=== PATIENT | male | born 1970 | race African-American/Black ===

== ENCOUNTER 2024-02-21 13:25 | Inpatient (IN) | payer OTHER ==
[2024-02-21 15:16] VITALS: BMI 33.7
[2024-02-21] MEDS ORDERED: POLYETHYLENE GLYCOL (HEALTHYLAX) 3350 17 GM PACKET PO PRN (18:20)
[2024-02-21] MEDS ORDERED: BENZONATATE 200 MG CAPSULE PO PRN (18:20)
[2024-02-21] MEDS ORDERED: hydrOXYzine PAMOATE 25 MG CAPSULE (FP) PO PRN (18:20)
[2024-02-21] MEDS ORDERED: IBUPROFEN 600 MG TABLET (FP) PO PRN (18:20)
[2024-02-21] MEDS ORDERED: ONDANSETRON *ODT* 4 MG TABLET SL PRN (18:20)
[2024-02-21] MEDS ORDERED: BISMUTH SUBSALICYLATE 524 MG/30 ML PO PRN (18:20)
[2024-02-21] MEDS ORDERED: BENZOCAINE/MENTHOL (CHLORASEPTIC ) LOZENGE MM PRN (18:20)
[2024-02-21] MEDS ORDERED: NALOXONE HCL (KLOXXADO) 8 MG SPRAY NS PRN (18:20)
[2024-02-21] MEDS ORDERED: guaiFENesin 600 MG TABLET.ER (FP) PO PRN (18:20)
[2024-02-21] MEDS ORDERED: MAGNESIUM HYDROX 2400MG/30ML ORAL SUSPENSION 30 ML CUP PO PRN (18:20)
[2024-02-21] MEDS ORDERED: DICYCLOMINE HCL 10 MG CAPSULE PO PRN (18:20)
[2024-02-21] MEDS ORDERED: IBUPROFEN 400 MG TABLET (FP) PO PRN (18:20)
[2024-02-21] MEDS ORDERED: NALOXONE HCL 0.4 MG/ML VIAL IM PRN (18:20)
[2024-02-21] MEDS ORDERED: MAG HYDROX/AL HYDROX/SIMETH 30 ML UNIT-DOSE CUP PO PRN (18:20)
[2024-02-21] MEDS ORDERED: LOPERAMIDE HCL 2 MG CAPSULE PO PRN (18:20)
[2024-02-21] MEDS: ACETAMINOPHEN 325 MG TABLET (FP) PO PRN (19:12)
[2024-02-21] MEDS: MELATONIN 5 MG TABLETS PO SCH (22:18)
[2024-02-21] MEDS: THIAMINE HCL 100 MG TABLET (FP) PO SCH (22:18)
[2024-02-21] MEDS: METHOCARBAMOL 500 MG TABLET PO PRN (22:19)
[2024-02-22] MEDS: LEVOTHYROXINE NA 25 MCG TABLET (FP) PO SCH (08:15)
[2024-02-22] MEDS: PRENATAL VITAMINS W/ FOLIC ACID TABLET (FP) PO SCH (10:03)
[2024-02-22] MEDS: ESCITALOPRAM OXALATE 10 MG TABLET PO SCH (11:15)
[2024-02-22 11:55] LABS: HEMATOCRIT 40.9 % (35.4-49); HEMOGLOBIN 13.9 GM/dL (11.7-16.9); MCH 31.2 pg (25.7-33.7); MEAN CELL VOLUME 91.8 fl (80-96); MEAN PLT VOLUME 7.2 fl (7.5-11.1); PLATELET COUNT 257 10^3/uL (134-434); RBC 4.45 M/mm3 (4.00-5.60); RDW 14.1 % (11.9-15.9); WHITE BLOOD COUNT 9.8 K/mm3 (4.0-10.0)
[2024-02-22 11:57] LABS: CHLORIDE 107 mmol/L (98-107); POTASSIUM 4.3 mmol/L (3.5-5.1); SODIUM 137 mmol/L (136-145)
[2024-02-22] MEDS: FLUTICASONE PROP 0.05% 16 GM NASAL SPRAY NS SCH (11:57)
[2024-02-22 12:13] LABS: GLUCOSE,RANDOM 101 mg/dL (74-106)
[2024-02-22 12:14] LABS: ALBUMIN 3.5 g/dl (3.4-5.0); ANION GAP 4 mmol/L (4-13); BLOOD UREA NITROGEN 15.2 mg/dL (7-18); CO2 27 mmol/L (21-32)
[2024-02-22 12:16] LABS: SGPT/ALT 33 U/L (13-61)
[2024-02-22 12:17] LABS: CREATININE 1.1 mg/dL (0.55-1.3); SGOT/AST 39 U/L (15-37)
[2024-02-22 12:18] LABS: BILIRUBIN,TOTAL 0.4 mg/dL (0.2-1); TOT PROT 6.4 g/dl (6.4-8.2)
[2024-02-22 12:19] LABS: ALK PHOS 69 U/L (45-117)
[2024-02-22] MEDS: traZODone HCL 50 MG TABLET (FP) PO SCH (22:46)
[2024-02-23 09:45] VITALS: BP 111/61; PULSE 74; RESP 20; TEMP 98
[2024-02-23] MEDS: FLUTICASONE PROP 0.05% 16 GM NASAL SPRAY NS SCH (11:00)
== END 2024-02-23 11:25 | disposition other institution (70) | DRG 774 ==
LOC: YASAS 13:25 → Y3N 18:04
PROVIDERS: ADMIT Allergy & Immunology; ATTEND Surgery
PROC: HZ2ZZZZ Detoxification Services for Substance Abuse Treatment (ICD-10-PCS; principal; 2024-02-21)
DX: F10.20 Alcohol dependence, uncomplicated (principal); F14.20 Cocaine dependence, uncomplicated; F17.210 Nicotine dependence, cigarettes, uncomplicated; F32.A Depression, unspecified; E03.9 Hypothyroidism, unspecified; G47.00 Insomnia, unspecified; K21.9 Gastro-esophageal reflux disease without esophagitis; Z86.59 Personal history of other mental and behavioral disorders; Z59.01 Sheltered homelessness
CPT/HCPCS: 36415; 80053; 80307; 85027; 86780; 87811; 93005; 93010

== ENCOUNTER 2024-02-23 11:24 | Inpatient (IN) | payer OTHER ==
[2024-02-23] MEDS ORDERED: METHOCARBAMOL 500 MG TABLET PO PRN (14:19)
[2024-02-23] MEDS ORDERED: guaiFENesin 600 MG TABLET.ER (FP) PO PRN (14:19)
[2024-02-23] MEDS ORDERED: NICOTINE 7 MG/24 HOURS TOPICAL PATCH TD PRN (14:19)
[2024-02-23] MEDS ORDERED: POLYETHYLENE GLYCOL (HEALTHYLAX) 3350 17 GM PACKET PO PRN (14:19)
[2024-02-23] MEDS ORDERED: LOPERAMIDE HCL 2 MG CAPSULE PO PRN (14:19)
[2024-02-23] MEDS ORDERED: NALOXONE (NYS OPIOID OVERDOSE PROGRAM) 4 MG/0.1 ML SPRAY NS PRN (14:19)
[2024-02-23] MEDS ORDERED: BENZONATATE 200 MG CAPSULE PO PRN (14:19)
[2024-02-23] MEDS ORDERED: NICOTINE POLACRILEX 4 MG GUM BUC PRN (14:19)
[2024-02-23] MEDS ORDERED: MAGNESIUM HYDROX 2400MG/30ML ORAL SUSPENSION 30 ML CUP PO PRN (14:19)
[2024-02-23] MEDS ORDERED: NALOXONE HCL 0.4 MG/ML VIAL IVPUSH PRN (14:19)
[2024-02-23] MEDS ORDERED: BENZOCAINE/MENTHOL (CHLORASEPTIC ) LOZENGE MM PRN (14:19)
[2024-02-23] MEDS ORDERED: NICOTINE POLACRILEX 4 MG LOZENGE BC PRN (14:19)
[2024-02-23] MEDS ORDERED: hydrOXYzine PAMOATE 25 MG CAPSULE (FP) PO PRN (14:19)
[2024-02-23] MEDS: MELATONIN 5 MG TABLETS PO SCH (21:19)
[2024-02-23] MEDS: THIAMINE 100 MG TABLET PO SCH (21:19)
[2024-02-23] MEDS: FLUTICASONE PROP 0.05% 16 GM NASAL SPRAY NS SCH (21:19)
[2024-02-23] MEDS: traZODone HCL 50 MG TABLET (FP) PO SCH (21:20)
[2024-02-23] MEDS: ACETAMINOPHEN 325 MG TABLET (FP) PO PRN (21:21)
[2024-02-24] MEDS: LEVOTHYROXINE NA 25 MCG TABLET (FP) PO SCH (06:23)
[2024-02-24] MEDS: PRENATAL VITAMINS W/ FOLIC ACID TABLET (FP) PO SCH (10:30)
[2024-02-24] MEDS: ESCITALOPRAM OXALATE 10 MG TABLET PO SCH (10:30)
[2024-02-26] MEDS: MAG HYDROX/AL HYDROX/SIMETH 30 ML UNIT-DOSE CUP PO PRN (21:18)
[2024-02-27] MEDS ORDERED: BENZONATATE 200 MG CAPSULE PO PRN (08:23)
[2024-02-27] MEDS ORDERED: BISMUTH SUBSALICYLATE 524 MG/30 ML PO PRN (08:23)
[2024-02-27] MEDS ORDERED: DICYCLOMINE HCL 10 MG CAPSULE PO PRN (08:23)
[2024-02-27] MEDS ORDERED: ONDANSETRON *ODT* 4 MG TABLET SL PRN (08:23)
[2024-02-28] MEDS: ESCITALOPRAM OXALATE 10 MG TABLET PO SCH (10:11)
[2024-02-28] MEDS: guaiFENesin 600 MG TABLET.ER (FP) PO PRN (10:14)
[2024-02-28] MEDS: IBUPROFEN 600 MG TABLET (FP) PO PRN (10:15)
[2024-02-28 14:36] LABS: PH,URINE 8.5 (5.0-8.0); URINE APPEARANCE CLEAR; URINE BILIRUBIN NEGATIVE (NEGATIVE); URINE COLOR YELLOW; URINE GLUCOSE (UA) NEGATIVE (NEGATIVE); URINE KETONE NEGATIVE (NEGATIVE); URINE LEUK ESTERASE NEGATIVE (NEGATIVE); URINE NITRITE NEGATIVE (NEGATIVE); URINE PROTEIN NEGATIVE (NEGATIVE); URINE UROBILINOGEN 0.2 mg/dL (0.2-1.0)
[2024-02-28 14:59] LABS: MAGNESIUM 2.2 mg/dL (1.8-2.4)
[2024-02-28] MEDS: CHOLECALCIFEROL (VIT D3) 400 UNIT (10 MCG) TABLET PO SCH (18:20)
[2024-03-05] MEDS: IBUPROFEN 400 MG TABLET (FP) PO PRN (09:54)
[2024-03-05] MEDS ORDERED: SIMETHICONE 80 MG TAB.CHEW (FP) PO PRN (14:41)
[2024-03-05] MEDS ORDERED: P-EPHED 60MG/TRIPROLIDI 2.5MG TABLET PO PRN (14:43)
[2024-03-05] MEDS: PANTOPRAZOLE 20 MG TABLET PO SCH (15:20)
[2024-03-05] MEDS: BACLOFEN 10 MG TABLET (FP) PO SCH (21:15)
[2024-03-06] MEDS: traZODone HCL 50 MG TABLET (FP) PO SCH (21:29)
[2024-03-07] MEDS: SIMETHICONE 80 MG TAB.CHEW (FP) PO SCH (15:05)
[2024-03-11] MEDS: OXYMETAZOLINE 0.05% NASAL SOLUTION 15 ML BOTTLE NS PRN (10:30)
[2024-03-11] MEDS: HYDROCORTISONE 0.5% TOPICAL CREAM 30 GM TUBE TP PRN (10:30)
[2024-03-16 06:17] VITALS: BP 101/65; PULSE 68; RESP 18; TEMP 97.6
== END 2024-03-16 09:19 | disposition home or self-care (01) | DRG 772 ==
LOC: YASAS 11:24 → Y3E 11:26
PROVIDERS: ADMIT Allergy & Immunology; ATTEND Psychiatry & Neurology Pain Medicine
PROC: HZ42ZZZ Group Counseling for Substance Abuse Treatment, Cognitive-Behavioral (ICD-10-PCS; principal; 2024-02-23)
DX: F10.20 Alcohol dependence, uncomplicated (principal); F14.10 Cocaine abuse, uncomplicated; F17.210 Nicotine dependence, cigarettes, uncomplicated; F41.9 Anxiety disorder, unspecified; E03.9 Hypothyroidism, unspecified; I10 Essential (primary) hypertension; K21.9 Gastro-esophageal reflux disease without esophagitis; J30.2 Other seasonal allergic rhinitis; Z86.19 Personal history of other infectious and parasitic diseases; Z59.01 Sheltered homelessness
CPT/HCPCS: 0241U-QW; 36415; 81003; 82140; 82306; 83735; 84443; J0475